=== PATIENT | female | born 1970 | race Hispanic/Latino ===

== ENCOUNTER 2017-05-05 16:11 | Emergency (ER) | payer BC ==
[~2017-05-05] VITALS: Ht 147.3 cm; Wt 75.0 kg
[2017-05-05 17:09] LABS: HEMOGLOBIN 9.1 g/dl (12.0-16.0); IMMATURE GRANULOCYTES 0.4 % (0.0-1.0); MEAN CELL VOLUME 71.1 fL CALC (80.0-100.0); MEAN CORPUSCULAR HGB 21.6 pG CALC (26.0-32.0); MEAN CORPUSCULAR HGB CONC 30.3 g/L CALC (32.0-36.0); NEUT# 7.24 thou/uL (2.00-7.15); RED BLOOD COUNT 4.22 mill/uL (4.20-5.60); RED CELL DISTRI WIDTH 18.2 % (11.5-15.5)
[2017-05-05 17:21] LABS: ALBUMIN 4.2 g/dL (3.2-5.0); ALKALINE PHOSPHATASE 56 u/l (38-126); ANION GAP 15 (6-22 (CALC)); BILIRUBIN, TOTAL 0.2 mg/dL (0.0-1.4); BUN 10 mg/dL (7-17); BUN/CREATININE RATIO 19 (12-20 (CALC)); CALCIUM 8.8 mg/dL (8.4-10.2); CARBON DIOXIDE 23 mmol/l (22-30); CHLORIDE 105 mmol/l (95-108); CREATININE 0.5 mg/dL (0.5-1.0); GFR > 60 ML/MIN (>=60 (CALC)); GFR FOR AFR.AMER. > 60 ML/MIN (>=60 (CALC)); GLUCOSE 143 mg/dL (65-105); POTASSIUM 3.7 mmol/l (3.5-5.1); SGOT/AST 23 u/l (14-36); SGPT/ALT 35 u/l (9-52); SODIUM 139 mmol/l (137-146)
[2017-05-05 17:22] LABS: INTERNATIONAL NORMALIZED RATIO 0.9 RATIO (0.7-1.3); PROTHROMBIN TIME 9.9 SECONDS (9.0-12.5)
[2017-05-05 17:33] LABS: MYOGLOBIN 13 ng/mL (0 - 62)
[2017-05-05 17:33] LABS: URINE BILIRUBIN - DIPSTICK NEGATIVE (NEGATIVE); URINE BLOOD DIPSTICK LARGE (NEGATIVE); URINE CLARITY CLEAR; URINE COLOR YELLOW; URINE GLUCOSE - DIPSTICK NEGATIVE (NEGATIVE); URINE KETONE NEGATIVE (NEGATIVE); URINE LEUK ESTERASE NEGATIVE (NEGATIVE); URINE NITRITE - DIPSTICK NEGATIVE (Negative); URINE PROTEIN - DIPSTICK NEGATIVE (NEG-TRACE); URINE SPECIFIC GRAVITY 1.025; URINE UROBILINOGEN - DIPSTICK 0.2 E.U./dL (0.2)
[2017-05-05 17:44] LABS: URINE SQUAMOUS EPITHELIAL CELL FEW EPI/hpf (0-FEW); URINE WBC 0-2 WBC/hpf (0-5)
[2017-05-05] MEDS ORDERED: IRON325 M1 PO (18:13)
[2017-05-05 18:20] VITALS: BP 118/65
== END 2017-05-05 18:28 | disposition home or self-care (01) | DRG 812 ==
LOC: ED 16:11
PROVIDERS: Emergency Medicine
DX: D64.9 Anemia, unspecified (principal); N94.6 Dysmenorrhea, unspecified; R53.83 Other fatigue; R53.1 Weakness; R50.9 Fever, unspecified; R94.31 Abnormal electrocardiogram [ECG] [EKG]

== ENCOUNTER 2017-07-13 16:45 | Emergency (ER) | payer BC ==
[~2017-07-13] VITALS: Ht 147.3 cm; Wt 84.0 kg
[~2017-07-13 16:45] MED LIST: IRON325 M1 PO
[2017-07-13 17:51] LABS: HEMATOCRIT 36.5 % (37.0-47.0); HEMOGLOBIN 11.8 g/dl (12.0-16.0); IMMATURE GRANULOCYTES 0.3 % (0.0-1.0); MEAN CELL VOLUME 79.5 fL CALC (80.0-100.0); MEAN CORPUSCULAR HGB 25.7 pG CALC (26.0-32.0); MEAN CORPUSCULAR HGB CONC 32.3 g/L CALC (32.0-36.0); NEUT# 5.85 thou/uL (2.00-7.15); RED BLOOD COUNT 4.59 mill/uL (4.20-5.60); RED CELL DISTRI WIDTH 21.8 % (11.5-15.5); URINE BILIRUBIN - DIPSTICK NEGATIVE (NEGATIVE); URINE BLOOD DIPSTICK NEGATIVE (NEGATIVE); URINE CLARITY CLEAR; URINE COLOR YELLOW; URINE GLUCOSE - DIPSTICK NEGATIVE (NEGATIVE); URINE KETONE NEGATIVE (NEGATIVE); URINE LEUK ESTERASE NEGATIVE (NEGATIVE); URINE NITRITE - DIPSTICK NEGATIVE (Negative); URINE PROTEIN - DIPSTICK NEGATIVE (NEG-TRACE); URINE SPECIFIC GRAVITY 1.015; URINE UROBILINOGEN - DIPSTICK 0.2 E.U./dL (0.2)
[2017-07-13 18:01] LABS: BUN 9 mg/dL (7-17); CREATININE 0.5 mg/dL (0.5-1.0); GLUCOSE 123 mg/dL (65-105)
[2017-07-13 18:02] LABS: ALBUMIN 4.4 g/dL (3.2-5.0); ALKALINE PHOSPHATASE 62 u/l (38-126); AMYLASE 61 u/l (30-110); ANION GAP 19 (6-22 (CALC)); BILIRUBIN, TOTAL 0.5 mg/dL (0.0-1.4); BUN/CREATININE RATIO 16 (12-20 (CALC)); CALCIUM 9.4 mg/dL (8.4-10.2); CARBON DIOXIDE 22 mmol/l (22-30); CHLORIDE 105 mmol/l (95-108); GFR > 60 ML/MIN (>=60 (CALC)); GFR FOR AFR.AMER. > 60 ML/MIN (>=60 (CALC)); LIPASE 74 u/l (23-300); POTASSIUM 4.1 mmol/l (3.5-5.1); SGOT/AST 40 u/l (14-36); SGPT/ALT 34 u/l (9-52); SODIUM 142 mmol/l (137-146); TOTAL PROTEIN 8.6 g/dL (6.3-8.2)
[2017-07-13] MEDS ORDERED: ULTRAM50 M1 PO (19:40)
[2017-07-13 20:10] VITALS: BP 128/73
== END 2017-07-13 20:10 | disposition home or self-care (01) | DRG 392 ==
LOC: ED 16:45
PROVIDERS: Emergency Medicine
DX: R10.32 Left lower quadrant pain (principal); R11.2 Nausea with vomiting, unspecified
CPT/HCPCS: Q9967

== ENCOUNTER 2017-10-07 09:06 | Emergency (ER) | payer BC ==
[~2017-10-07] VITALS: Ht 147.3 cm; Wt 83.6 kg
[~2017-10-07 09:06] MED LIST changes: +ULTRAM50 M1 PO
[2017-10-07] MEDS ORDERED: MOTRIN800 MG PO (09:50)
[2017-10-07] MEDS ORDERED: TESSALON PER100 MG PO (09:50)
[2017-10-07] MEDS ORDERED: AFRIN 12 HOUR0.05 % (09:50)
[2017-10-07 10:06] LABS: INFLUENZA A NONE DETECTED (NONE DETECT); INFLUENZA B NONE DETECTED (NONE DETECT)
[2017-10-07 10:32] VITALS: BP 106/70
[2017-10-08] MEDS ORDERED: PENICILLN VK500 MG PO (15:28)
[2017-10-08] MEDS ORDERED: LORTAB 5/3255 MG PO (15:28)
== END 2017-10-07 10:44 | disposition home or self-care (01) | DRG 866 ==
LOC: ED 09:06
PROVIDERS: Emergency Medicine
DX: B34.9 Viral infection, unspecified (principal); J06.9 Acute upper respiratory infection, unspecified; R05 Cough; R50.9 Fever, unspecified; R09.81 Nasal congestion; R09.89 Other specified symptoms and signs involving the circulatory and respiratory systems

== ENCOUNTER 2017-10-08 14:19 | Emergency (ER) | payer BC ==
[~2017-10-08] VITALS: Ht 147.3 cm; Wt 84.2 kg
[~2017-10-08 14:19] MED LIST changes: +AFRIN 12 HOUR0.05 %; +MOTRIN800 MG PO; +TESSALON PER100 MG PO
[2017-10-08] MEDS ORDERED: LORTAB 5/3255 MG PO (15:28)
[2017-10-08] MEDS ORDERED: PENICILLN VK500 MG PO (15:28)
[2017-10-08 15:47] VITALS: BP 114/72
== END 2017-10-08 15:47 | disposition home or self-care (01) | DRG 159 ==
LOC: ED 14:19
DX: K08.89 Other specified disorders of teeth and supporting structures (principal); R22.0 Localized swelling, mass and lump, head